=== PATIENT | female | born 1985 | race Caucasian/White ===

== ENCOUNTER 2019-05-06 15:47 | Emergency (ER) | payer OTHER ==
[~2019-05-06] VITALS: Ht 172.7 cm; Wt 147.9 kg
[~2019-05-06 15:47] MED LIST: BACTRIM DS TAB1 EACH PO; CYMBALTA30 MG PO; FLEXERIL PO; METFORMIN HCL500 MG PO; PHENERGAN 25 MG25 M1 PO; PROMETHAZINE HC25 M1 PO; PYRIDIUM200 MG PO; ULTRAM 50MG TAB50 MG PO
[2019-05-06] MEDS ORDERED: AMITRIPTYLINE H25 M2 PO (16:19)
[2019-05-06] MEDS ORDERED: COUMADIN 10MG T10 M1 (16:22)
[2019-05-06] MEDS ORDERED: TOPAMAX 100 MG100 MG PO (16:23)
[2019-05-06] MEDS ORDERED: CELEXA20 MG PO (16:27)
[2019-05-06 17:26] LABS: CALCIUM 9.5 mg/dL (8.5-10.1); CREATININE 1.3 mg/dL (0.6-1.0); EOSINOPHILS 6.1 % (0.0-3.0); HEMATOCRIT 33.8 % (37.0-47.0); HEMOGLOBIN 11.2 gm/dL (12.0-15.0); LYMPHOCYTES 30.3 % (24.0-44.0); MCH 32.2 pg (26.0-34.0); MCHC 33.1 g/dL (28.0-37.0); MCV 97.4 fL (80.0-100.0); MONOCYTES 10.8 % (1.0-8.0); PLATELET COUNT 210 thou/uL (150-400); POLYS 51.8 % (36.0-66.0); POTASSIUM 4.3 mmol/L (3.5-5.1); RBC 3.47 mil/uL (4.20-5.00); RDW 14.7 % (10.5-14.5); WBC 3.9 thou/uL (4.0-11.0)
[2019-05-06 17:32] LABS: APTT 28.5 Seconds (24.5-32.8); PROTIME 10.2 Seconds (9.3-11.4)
[2019-05-06 17:54] LABS: D-DIMER 1.25 ug/mLFEU (0.19-0.50)
[2019-05-06] MEDS ORDERED: ELIQUIS5 M1 PO (20:15)
[2019-05-06 20:40] VITALS: BP 108/51
--- NOTE | 2019-05-07 08:54 | EKG ---
[place] [address] [facility] [place] [address] ELECTROCARDIOGRAM REPORT Name: FRANSICO RITTER 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
== END 2019-05-06 20:44 | disposition home or self-care (01) ==
LOC: ER 15:47
PROVIDERS: Emergency Medicine
DX: R07.89 Other chest pain (principal); R06.00 Dyspnea, unspecified; E11.9 Type 2 diabetes mellitus without complications; F41.9 Anxiety disorder, unspecified; Z90.49 Acquired absence of other specified parts of digestive tract; Z90.721 Acquired absence of ovaries, unilateral; Z88.8 Allergy status to other drugs, medicaments and biological substances